=== PATIENT | male | born 1970 | race Two or more races ===

== ENCOUNTER 2016-07-10 12:10 | Outpatient (CLI) | payer BC ==
[~2016-07-10 12:10] MED LIST: ATOR40TA PO; METO25TA6 PO; TICA90TA PO
== END 2016-07-10 23:59 | disposition home or self-care (01) ==
LOC: MRI 12:10
PROVIDERS: ATTEND Internal Medicine
DX: M19.012 Primary osteoarthritis, left shoulder (principal); M75.82 Other shoulder lesions, left shoulder
CPT/HCPCS: 73221-TC

== ENCOUNTER 2016-08-24 09:48 | Emergency (ER) | payer BC ==
[~2016-08-24] VITALS: Ht 177.8 cm; Wt 117.9 kg
--- NOTE | 2016-08-24 09:50 | NUR ---
SELF PRESENT TO ED ACCOMPANIES BY CO-WORKER DUE TO LEFT SHOULDER PAIN THAT RADIATES TO THE NECK, 12/03 THAT STARTED 10 MINS REGISTERED RADIOLOGIC TECHNOLOGIST AFTER ARM WAS TAPPED/PUSHED FROM BEHIND. PATIENT ALSO COMPLAINT OFTINGLING SENSATION ON LEFT HAND. PATIENT'S SKIN IS WARM TO TOUCH. PATIENT IS AFEBRILE/ VSS. AWAITING FOR MD ENGLISH
[2016-08-24] MEDS ORDERED: DIAZEPAM 5 MG/ML 2 ML DISP.SYRIN ONE (09:59)
[2016-08-24] MEDS ORDERED: MORPHINE SULFATE INJ 4 MG/ML DISP.SYRIN ONE (10:00)
[2016-08-24] MEDS ORDERED: MORPHINE SULFATE INJ 2 MG/ML DISP.SYRIN IM ONE (10:00)
[2016-08-24] MEDS ORDERED: DIAZEPAM 5 MG/ML 2 ML DISP.SYRIN IM ONE (10:00)
--- NOTE | 2016-08-24 10:09 | NUR ---
MEDICATED PT ORDERED
--- NOTE | 2016-08-24 10:12 | NUR ---
PATIENT WAS TAKEN TO RADIOLOGY DEPARTMENT
--- NOTE | 2016-08-24 10:40 | NUR ---
IAIN HERMAN AT TO APPLY SLING ON L ARM.
--- NOTE | 2016-08-24 11:00 | NUR ---
Patient discharged to home in stable condition. Written and verbal after care instructions given. Patient verbalizes understanding of instruction. Pt ambulatory with a steady gait.
[2016-08-24 11:16] VITALS: BP 149/98
== END 2016-08-24 11:20 | disposition home or self-care (01) ==
LOC: ER 09:49
DX: S46.912A Strain of unspecified muscle, fascia and tendon at shoulder and upper arm level, left arm, initial encounter (principal); I10 Essential (primary) hypertension; I25.2 Old myocardial infarction; Z95.811 Presence of heart assist device; X58.XXXA Exposure to other specified factors, initial encounter; Y93.89 Activity, other specified; Y92.89 Other specified places as the place of occurrence of the external cause; Y99.8 Other external cause status; F17.200 Nicotine dependence, unspecified, uncomplicated
CPT/HCPCS: 73030; 96372 ×2; 99284; A4606; J2270; J3360; Z7610